=== PATIENT | female | born 2000 | race Caucasian/White ===

== ENCOUNTER 2023-02-21 | Inpatient (IN) | payer MEDICAID ==
[2023-02-21] MEDS ORDERED: Ondansetron 4 MG/2 ML SDV IVPUSH PRN (00:23)
[2023-02-21] MEDS ORDERED: Acetaminophen 325 MG Tab PO PRN (00:23)
[2023-02-21] MEDS ORDERED: Lidocaine 1% 50 ML MDV INJECT PRN (00:23)
[2023-02-21] MEDS ORDERED: Carboprost Tromethamine 250 MCG/1 mL Vial IM PRN (00:23)
[2023-02-21] MEDS ORDERED: Methylergonovine 0.2 MG/1 ML Amp IM PRN (00:23)
[2023-02-21] MEDS ORDERED: Nalbuphine 10 MG/0.5 ML Syringe IVPUSH PRN (00:23)
[2023-02-21] MEDS ORDERED: Sodium Chloride 0.9% 20 ML SDV IV PRN (00:23)
[2023-02-21] MEDS ORDERED: Sodium Chloride 0.9% 10 ML Syringe FLUSH PRN (00:23)
[2023-02-21] MEDS ORDERED: Tranexamic Acid IN NACL,ISO-OS 1,000 MG in Premix Bag 1 BAG IV PRN ×2 (00:23)
[2023-02-21] MEDS ORDERED: Misoprostol 200 MCG Tab RECTAL PRN (00:23)
[2023-02-21] MEDS ORDERED: Water For Irrigation,Sterile 1,000 ML Container IRR PRN (00:23)
[2023-02-21] MEDS ORDERED: Misoprostol 25 MCG (1/4 of 100 MCG) Tab VAG PRN ×2 (00:23)
[2023-02-21] MEDS ORDERED: Sodium Chloride 0.9% 2.5 ML Syringe FLUSH PRN (00:23)
[2023-02-21] MEDS ORDERED: Oxytocin/0.9 % Sodium Chloride 30 UNIT/500 ML BAG IV SCH ×2 (00:30)
[2023-02-21] MEDS: Lactated Ringers 1,000 ML IV SCH ×3 (01:03→08:33)
[2023-02-21 01:41] LABS: HEMOGLOBIN 9.3 g/dL (12.0-16.0); MEAN CORPUSCULAR HEMOGLOBIN 21.4 pg (28.0-32.0); MEAN CORPUSCULAR VOLUME 71.4 fL (83.0-99.0); MEAN PLATELET VOLUME 10.1 fL (9.4-12.3); PLATELET COUNT,PLT 209 K/uL (150-400); RED BLOOD CELL COUNT 4.34 M/uL (4.10-5.30); WHITE BLOOD CELL COUNT,WBC 9.91 K/uL (3.9-11.3)
[2023-02-21 02:14] LABS: A/G RATIO 0.5 (0.9-1.6); ALBUMIN 2.3 g/dL (3.4-5.0); BILIRUBIN TOTAL 0.9 mg/dL (0.2-1.0); CALCIUM 8.8 mg/dL (8.5-10.1); CARBON DIOXIDE,CO2 25.3 mmol/L (21.0-32.0); CREATININE 0.6 mg/dL (0.6-1.0); EST CRCL DRUG DOSING (CG) 109.1 mL/min; POTASSIUM,K 3.8 mmol/L (3.5-5.1); PROTEIN TOTAL,TP 6.7 g/dL (6.4-8.2)
[2023-02-21] MEDS ORDERED: Phenylephrine HCl 0.5 MG/5 ML AMP IVPUSH PRN (03:20)
[2023-02-21] MEDS ORDERED: ePHEDrine 50 MG/ML SDV IVPUSH PRN ×2 (03:20)
[2023-02-21] MEDS ORDERED: Ropivacaine HCl/PF 400 MG in Premix Bag 1 BAG EPIDUR SCH (03:30)
[2023-02-21] MEDS ORDERED: dexmedeTOMIDine HCl 200 MCG/2 ML SDV ONE (08:29)
[2023-02-21] MEDS ORDERED: Bisacodyl 10 MG Supp RECTAL PRN (14:31)
[2023-02-21] MEDS ORDERED: Witch Hazel Medicated Pads 40/Jar TOP PRN (14:31)
[2023-02-21] MEDS ORDERED: Docusate Sodium 100 MG Cap PO PRN (14:31)
[2023-02-21] MEDS ORDERED: diphenhydrAMINE 50 MG Cap PO PRN (14:31)
[2023-02-21] MEDS ORDERED: Simethicone 80 MG Tab.Chew PO PRN (14:31)
[2023-02-21] MEDS ORDERED: Lanolin 100% Cream 7 GM Tube TOP PRN (14:31)
[2023-02-21] MEDS ORDERED: Benzocaine/Menthol 20%-0.5% Spray 78 GM Cannister TOP PRN (14:31)
[2023-02-21] MEDS: Ibuprofen 800 MG Tab PO PRN ×2 (17:28→23:45)
[2023-02-21] MEDS: Acetaminophen 500 MG Tab PO PRN (19:44)
[2023-02-22 06:23] LABS: HEMATOCRIT 31.3 % (37.0-47.0); HEMOGLOBIN 9.4 g/dL (12.0-16.0); MEAN CORPUSCULAR HEMOGLOBIN 22.1 pg (28.0-32.0); MEAN CORPUSCULAR VOLUME 73.5 fL (83.0-99.0); MEAN PLATELET VOLUME 10.9 fL (9.4-12.3); NRBC ABSOLUTE 0.02 K/uL (0.00-0.02); NRBC PERCENT 0.2 /100WBC (0.0-0.2); PLATELET COUNT,PLT 182 K/uL (150-400); RED BLOOD CELL COUNT 4.26 M/uL (4.10-5.30); WHITE BLOOD CELL COUNT,WBC 12.51 K/uL (3.9-11.3)
[2023-02-22] MEDS: Ferrous Sulfate 325 MG Tab PO SCH ×2 (08:22→16:12)
[2023-02-22] MEDS: Ibuprofen 800 MG Tab PO PRN ×2 (08:42→16:12)
[2023-02-22] MEDS ORDERED: Prenatal Multivitamin with Calcium/Folic Acid/Iron Tab PO SCH (09:00)
[2023-02-22] MEDS: Acetaminophen 500 MG Tab PO PRN (10:43)
== END 2023-02-22 18:54 | disposition home or self-care (01) | DRG 805 ==
LOC: MW.OB → OBSVTOIN 14:27 → MW.OB 19:42
PROVIDERS: ADMIT Obstetrics & Gynecology; ATTEND Obstetrics & Gynecology
PROC: 10E0XZZ Delivery of Products of Conception, External Approach (ICD-10-PCS; principal; 2023-02-21)
PROC: 10907ZC Drainage of Amniotic Fluid, Therapeutic from Products of Conception, Via Natural or Artificial Opening (ICD-10-PCS; 2023-02-21)
PROC: 3E033VJ Introduction of Other Hormone into Peripheral Vein, Percutaneous Approach (ICD-10-PCS; 2023-02-21)
PROC: 3E0R3BZ Introduction of Anesthetic Agent into Spinal Canal, Percutaneous Approach (ICD-10-PCS; 2023-02-21)
PROC: 00HU33Z Insertion of Infusion Device into Spinal Canal, Percutaneous Approach (ICD-10-PCS; 2023-02-21)
DX: O26.643 Intrahepatic cholestasis of pregnancy, third trimester (principal); K83.1 Obstruction of bile duct; D62 Acute posthemorrhagic anemia; F32.A Depression, unspecified; O99.344 Other mental disorders complicating childbirth; O99.02 Anemia complicating childbirth; O76 Abnormality in fetal heart rate and rhythm complicating labor and delivery; Z37.0 Single live birth; Z3A.38 38 weeks gestation of pregnancy
CPT/HCPCS: 36415; 51702; 80053; 83615; 85027; 86592; 86850; 86900; 86901; A9270-GY; J2590; J2795; J3490; J7120